=== PATIENT | female | born 1990 | race Caucasian/White ===

== ENCOUNTER 2016-10-24 16:04 | Emergency (ER) | payer MEDICAID, OTHER ==
[~2016-10-24] VITALS: Ht 160 cm; Wt 92.7 kg
[~2016-10-24 16:04] MED LIST: OXCA300T46 PO; PHENY100 PO; TOPI100 PO; TRAZ-144 PO
[2016-10-24] MEDS ORDERED: OXCA300T PO (17:06)
[2016-10-24 18:46] LABS: INFLUENZA TYPE B NEGATIVE FOR TYPE B (NEGATIVE)
[2016-10-24 19:13] VITALS: BP 113/73
== END 2016-10-24 19:23 | disposition home or self-care (01) ==
LOC: EMS 16:08
DX: J40 Bronchitis, not specified as acute or chronic (principal)
CPT/HCPCS: 71020; 81025; 87804; 99285

== ENCOUNTER 2017-09-16 14:11 | Emergency (ER) | payer OTHER ==
[~2017-09-16] VITALS: Ht 152.4 cm; Wt 86.4 kg
[~2017-09-16 14:11] MED LIST changes: +OXCA300T PO; -TOPI100 PO; -TRAZ-144 PO
[2017-09-16] MEDS ORDERED: LORazepam 2 MG TABLET PO ONE (17:30)
[2017-09-16] MEDS ORDERED: MECLIZINE HCL 25 MG TABLET PO ONE (17:30)
[2017-09-16 17:46] LABS: BASOPHILS # (AUTO) 0.05 K/uL (0.00-0.20); BASOPHILS % (AUTO) 0.8 % (0.0-2.0); EOSINOPHILS # (AUTO) 0.09 K/uL (0.00-0.70); EOSINOPHILS % (AUTO) 1.38 % (1.0-6.0); HEMATOCRIT 35.2 % (36-46); HEMOGLOBIN 10.7 g/dL (12.0-16.0); LYMPHOCYTES # (AUTO) 1.8 K/uL (1.0-4.8); LYMPHOCYTES % (AUTO) 26.7 % (22.0-44.0); MEAN CORPUSCULAR HEMOGLOBIN 19.6 pg (26.0-34.0); MEAN CORPUSCULAR HGB CONC 30.4 G/dL (31.0-37.0); MEAN CORPUSCULAR VOLUME 64 fL (80-100); MONOCYTES # (AUTO) 0.6 K/uL (0.1-1.0); MONOCYTES % (AUTO) 8.9 % (2.0-9.0); NEUTROPHILS # (AUTO) 4.1 K/uL (1.8-7.7); NEUTROPHILS % (AUTO) 62.3 % (40.0-70.0); PLATELET COUNT (AUTO) 281 K/uL (150-450); RED BLOOD CELL COUNT(AUTO) 5.47 MIL/uL (4.00-5.20); RED CELL DISTRIBUTION WIDTH 23.1 % (11.5-14.5)
[2017-09-16 17:54] LABS: ANION GAP 9 mmol/L (8-16); CARBON DIOXIDE 26 mmol/L (22-29); CHLORIDE 105 mmol/L (98-107); CREATININE 0.81 mg/dL (0.60-1.30); GLOMERULAR FILTR. RATE CALC > 60 mL/min (>60); GLUCOSE,RANDOM 92 mg/dL (70-110); SODIUM SERUM 140 mmol/L (136-145); UREA NITROGEN, BLOOD 13 mg/dL (7-18)
[2017-09-16 17:58] LABS: PHENYTOIN (DILANTIN) < 0.5 mcg/mL (10.0-20.0)
[2017-09-16 18:59] LABS: PLATELET MORPHOLOGY COMMENT LARGE PLTS PRESENT
[2017-09-16 21:14] VITALS: BP 116/97
== END 2017-09-16 21:22 | disposition home or self-care (01) ==
LOC: EMS 14:19
DX: G25.0 Essential tremor (principal); R42 Dizziness and giddiness; R11.0 Nausea; R05 Cough; Z88.8 Allergy status to other drugs, medicaments and biological substances
CPT/HCPCS: 70450; 99285